=== PATIENT | female | born 1955 | race Caucasian/White ===

== ENCOUNTER 2017-10-25 13:24 | Emergency (ER) | payer OTHER ==
[~2017-10-25] VITALS: Ht 149.9 cm; Wt 63.5 kg
[~2017-10-25 13:24] MED LIST: DIOVAN160 M1; SYNTHROID50 MCG; ZOCOR40 MG
== END 2017-10-25 16:17 | disposition home or self-care (01) ==
LOC: ER 13:24
DX: M79.662 Pain in left lower leg (principal); M79.661 Pain in right lower leg; M19.91 Primary osteoarthritis, unspecified site

== ENCOUNTER 2022-11-04 10:04 | Emergency (ER) | payer OTHER ==
[~2022-11-04] VITALS: Ht 149.9 cm; Wt 65.8 kg
== END 2022-11-04 13:55 | disposition home or self-care (01) ==
LOC: ER 10:04
DX: R07.89 Other chest pain (principal); I10 Essential (primary) hypertension